=== PATIENT | female | born 1960 | race Caucasian/White ===

== ENCOUNTER 2022-08-10 15:19 | Emergency (ER) | payer BC ==
[~2022-08-10] VITALS: Ht 162.6 cm; Wt 71.2 kg
[2022-08-10] MEDS ORDERED: 0.9% NACL 500ML IV.SOLN 500 ML IV ONE ×2 (16:00→17:00)
[2022-08-10 16:03] LABS: BASOPHILS % (AUTO) 0.8 % (0.0-5.0); EOSINOPHILS % (AUTO) 7.2 % (0.0-8.0); HEMATOCRIT 39.6 % (36-48); MEAN CORPUSCULAR HEMOGLOBIN 27.8 pg (27.0-33.0); MEAN CORPUSCULAR HGB CONC 33.3 g/dL (32.0-36.0); MEAN CORPUSCULAR VOLUME 83.5 fL (79-99); MONOCYTES % (AUTO) 7.4 % (3.0-13.0); NEUTROPHILS % (AUTO) 67.3 % (40.0-77.0); PLATELET COUNT (AUTO) 254 K/uL (130-400); RED BLOOD CELL COUNT(AUTO) 4.74 MIL/uL (4.00-5.50); RED CELL DISTRIBUTION WIDTH 13.3 % (11.0-15.5); WHITE BLOOD COUNT (AUTO) 9.9 K/uL (4.8-10.8)
[2022-08-10 16:04] LABS: APPEARANCE,URINE CLEAR (CLEAR); BILIRUBIN,URINE NEGATIVE (NEGATIVE); COLOR,URINE COLORLESS (YELLOW); GLUCOSE, URINE (UA) NEGATIVE (NEGATIVE); KETONES,URINE NEGATIVE (NEGATIVE); LEUKOCYTE ESTERASE ,URINE NEGATIVE Leu/uL (NEGATIVE); NITRATE,URINE NEGATIVE (NEGATIVE); OCCULT BLOOD,URINE NEGATIVE (NEGATIVE); PROTEIN,URINE 70 mg/dL (NEGATIVE); UROBILINOGEN,URINE 0.2 mg/dL (0.2-1.0)
[2022-08-10 16:14] LABS: MUCUS,URINE RARE LPF (None Seen); OTHER CASTS, URINE 1 /LPF (None Seen); RBC,URINE 0-1 /HPF (0-1); WBC,URINE 0-1 /HPF (0-1)
[2022-08-10 16:16] LABS: CREATININE 1.7 mg/dL (0.5-1.5); POTASSIUM 3.9 mmol/L (3.5-5.1)
[2022-08-10 16:21] LABS: ALBUMIN 4.3 g/dL (3.5-5.0); TOTAL PROTEIN, SERUM 8.2 g/dL (6.0-8.3)
[2022-08-10 17:29] VITALS: BP 185/87
[2022-08-19] MEDS ORDERED: HYDR-3421 PO (17:17)
[2022-08-19] MEDS ORDERED: NEBI5TAB11 PO (17:17)
[2022-08-19] MEDS ORDERED: AMLO-257 PO (17:17)
[2022-08-19] MEDS ORDERED: LISI10TA24 PO (17:17)
[2022-08-19] MEDS ORDERED: RIVA20TA PO (17:17)
[2022-08-19] MEDS ORDERED: ALPE1TAB5 PO (17:17)
== END 2022-08-10 17:43 | disposition home or self-care (01) ==
LOC: EDH 15:19
DX: I10 Essential (primary) hypertension (principal); E86.0 Dehydration; Z90.49 Acquired absence of other specified parts of digestive tract; Z98.890 Other specified postprocedural states
CPT/HCPCS: 99284; 96360; 84484; 80053; 85025; 81001; 36415; 93005; J7040

== ENCOUNTER → 2024-04-25 | Outpatient (CLI) | payer MEDICARE ==
[~2024-04-25] MED LIST: ALPE1TAB5 PO; AMOX1TAB15 PO; HYDR-3421 PO; LABE100T7 PO; NIFE90TA72 PO; RIVA20TA PO
[2024-04-25 12:24] LABS: CREATININE 1.4 mg/dL (0.5-1.0); POTASSIUM 3.9 mmol/L (3.5-5.1)
== END | disposition home or self-care (01) ==
LOC: LAB 08:23
PROVIDERS: ATTEND Student in an Organized Health Care Education/Training Program
DX: I10 Essential (primary) hypertension (principal); R07.9 Chest pain, unspecified
CPT/HCPCS: 36415; 80048

== ENCOUNTER → 2024-05-02 | Outpatient (CLI) | payer MEDICARE ==
[~2024-05-02] MED LIST changes: +IOHEXOL 350 MG/ML 100ML INFUS..BTL IV ONE; +METOPROLOL TARTRATE 1 MG/ML 5ML VIAL IV ONE
== END | disposition home or self-care (01) ==
LOC: RAH 11:12
PROVIDERS: ATTEND Student in an Organized Health Care Education/Training Program
DX: R07.9 Chest pain, unspecified (principal)
CPT/HCPCS: 75574; J3490 ×2; Q9967

== ENCOUNTER 2024-06-21 10:50 | Emergency (ER) | payer BC, MEDICARE ==
[~2024-06-21] VITALS: Ht 162.6 cm; Wt 78.9 kg
[~2024-06-21 10:50] MED LIST changes: -IOHEXOL 350 MG/ML 100ML INFUS..BTL IV ONE; -METOPROLOL TARTRATE 1 MG/ML 5ML VIAL IV ONE
[2024-06-21 11:39] LABS: BASOPHILS # (AUTO) 0.04 K/uL (0.00-0.20); BASOPHILS % (AUTO) 0.5 % (0.0-5.0); EOSINOPHILS # (AUTO) 0.43 K/uL (0.00-0.70); EOSINOPHILS % (AUTO) 5.7 % (0.0-8.0); HEMATOCRIT 36.5 % (36-48); IMMATURE GRANULOCYTE ABSOLUTE 0.03 K/uL (0-1); LYMPHOCYTES % (AUTO) 13.6 % (21.0-51.0); MEAN CORPUSCULAR HEMOGLOBIN 28.5 pg (27.0-33.0); MEAN CORPUSCULAR HGB CONC 32.6 g/dL (32.0-36.0); MEAN CORPUSCULAR VOLUME 87.5 fL (79-99); MONOCYTES # (AUTO) 0.8 K/uL (0.1-1.0); MONOCYTES % (AUTO) 11.2 % (3.0-13.0); NEUTROPHILS # (AUTO) 5.2 K/uL (1.8-7.7); NEUTROPHILS % (AUTO) 68.6 % (40.0-77.0); PLATELET COUNT (AUTO) 212 K/uL (130-400); RED BLOOD CELL COUNT(AUTO) 4.17 MIL/uL (4.00-5.50); RED CELL DISTRIBUTION WIDTH 12.8 % (11.0-15.5); WHITE BLOOD COUNT (AUTO) 7.5 K/uL (4.8-10.8)
[2024-06-21 11:45] LABS: POTASSIUM 3.8 mmol/L (3.5-5.1)
[2024-06-21 11:48] LABS: INR 1.42 (0.85-1.15); PROTHROMBIN TIME 14.9 SEC (9.6-11.6)
[2024-06-21 11:50] LABS: PARTIAL THROMBOPLASTIN TIME 44.6 SEC (26.3-35.5)
[2024-06-21 13:39] VITALS: BP 137/62; PULSE 70; RESP 20; O2SAT 97
[2024-06-21] MEDS ORDERED: METH-811 PO (13:47)
[2024-06-21] MEDS: METHOCARBAMOL 500 MG TABLET PO ONE (13:50)
[2024-06-21] MEDS: SOLU-MEDROL 125MG VIAL IVP ONE (13:50)
== END 2024-06-21 14:00 | disposition home or self-care (01) ==
LOC: EDH 10:50
DX: R22.1 Localized swelling, mass and lump, neck (principal); M54.2 Cervicalgia; E11.9 Type 2 diabetes mellitus without complications; D69.6 Thrombocytopenia, unspecified; Z79.899 Other long term (current) drug therapy; Z90.49 Acquired absence of other specified parts of digestive tract; Z90.710 Acquired absence of both cervix and uterus; Z98.890 Other specified postprocedural states
CPT/HCPCS: 99285; 96374; 70490; 80048; 85025; 85610; 85730; 36415; 76536; J2919